=== PATIENT | female | born 1960 | race Caucasian/White ===

== ENCOUNTER 2019-08-04 08:00 | Outpatient (CLI) | payer MEDICAID, SELFPAY | END 2019-08-04 09:00 | disposition home or self-care (01) | LOC: RAD 01-27 13:06 | PROVIDERS: PCP Family Medicine; Visit Provider Internal Medicine Interventional Cardiology | DX: I25.10 Atherosclerotic heart disease of native coronary artery without angina pectoris (principal); R07.9 Chest pain, unspecified; R94.39 Abnormal result of other cardiovascular function study | CPT/HCPCS: 93017; 96374 ==

== ENCOUNTER 2019-08-04 08:00 | Outpatient (CLI) | payer MEDICAID, SELFPAY ==
[2019-08-04 08:08] VITALS: BMI 23.6
--- NOTE | 2019-08-04 08:08 | ECG_ITS ---
NAME OF STUDY: LEXISCAN SESTAMIBI STRESS TEST INDICATION: Chest Pain SEND RESULTS TO [facility] ATTN: China Salcedo MD PROCEDURE: At the baseline, the EKG revealed normal sinus rhythm with a poor R wave progression. Possible old anteroseptal myocardial infarction. Nonspecific T wave changes. The baseline blood pressure was 123/78 mm Hg with a heart rate of71 beats/min. Lexiscan was infused over a period of 20 seconds. A total of 0.4 milligrams of Lexiscan was infused. The stress phase was continued for a total of 5 minutes. Heart rate at the end of the stress phase was 102 with a blood pressure 116/62. The EKG at the peak infusion revealed diffuse nonspecific ST-T changes. Sestamibi was injected 20 seconds after the Lexiscan infusion. Blood pressure at the end of the recovery phase was 122/68 with a heart rate of 66 per minute. CONCLUSION: 1. Nonspecific EKG changes with the LexiScan infusion 2. No LexiScan induced chest pain or cardiac arrhythmia 3. Normal blood pressure and heart rate response 4. Sestamibi/sestamibi perfusion scan pending; see separate report. Electronically Signed On 08-08-2019 10:58:21 [employer] by Cole Penn M.D. [email or web address]
--- NOTE | 2019-08-04 08:09 | NMCV_ITS ---
NM thony perf SPECT r/s* [id number] Yamile Chester Age: 58 Gender: F : 1960 Exam Date: 08/04/2019 08:09 Ordering Phys: China Salcedo MD Technologist: KELY Horton Exam Location: [facility] Indications: ATHEROSCLEROTIC HEART DISEASE OF [place] CORONARY ARTERY STRESS TEST Please see separate stress test report in [facility] for full findings IMAGE PROTOCOL Rest/Stress 1 Lexiscan Day Radiopharmaceutical Dose (mCi) Administration Site Administered by Rest: Tc-99m 10.5 IV KELY Horton Sestamibi Stress:Tc-99m 32.4 IV KELY Mccollum Sestamibi Rest: 04-Aug-2019 60 Discovery 630 Stress: 04-Aug-2019 30 Discovery 630 0.4mg Lexiscan. Supine position only as patient was unable to lay prone. SPECT RESULTS Technical Quality: Excellent Raw Data Analysis: Normal Image Corrections: No attenuation or motion correction applied Summed Stress Score: 1 Summed Rest Score: 2 Summed Difference Score: 0 PERFUSION FINDINGS Small area of persistent decreased tracer uptake noted in distal anterior and apical wall of the left ventricle consistent with more of an artifact in the absence of other parameters. Patient was not able to perform the prone images therefore cannot be adjusted for artifact. FUNCTIONAL RESULTS (calculated via Gated SPECT) Stress Image LV EF (%): 75 Stress EDV (mL):69 TID: 1.11 Stress ESV (mL):17 Rest Image LV EF (%): 75 FUNCTIONAL FINDINGS: There is normal left ventricular systolic function. IMPRESSIONS Myocardial perfusion imaging is normal low probability for obstructive coronary artery disease. TID ratio is elevated which could be secondary left-ventricular hypertrophy/subendocardial ischemia in the absence of other parameters. Fabiano Reyes MD (Electronically Signed) Final Date: 05 August 2019 11:29 S
[2019-08-04] MEDS: regadenoson 0.4 Mg/5 ml Syringe IVP (10:28)
--- NOTE | 2019-08-04 10:29 | SUR.PREOP ---
Patient reports no pain or discomfort prior to the start of the procedure.
[2019-08-04] MEDS: aminophylline 25 mg/mL SDV 10 mL IVP (10:38)
[2019-08-04 10:53] VITALS: BP 122/68; PULSE 66
--- NOTE | 2019-08-04 11:49 | USCV_ITS ---
Nemo Yamile Age: 58 Gender: F : 1960 Exam Date: 08/04/2019 11:49 Ordering Phys: China Salcedo MD Technologist: Laura Vidal [place] [facility] [place]: LEG PAIN Risk Factors: Previous Vascular Surgery: RIGHT LEFT BP: 122.0 / 72.00 BP: 115.0/ 74.00 0 0 Waveform Velocity (cm/s) Velocity (cm/s) Waveform Triphasic 134.7 Iliac Prox 101.9 Triphasic Triphasic 108.6 Iliac Mid 91.2 Triphasic Triphasic Iliac Distal Triphasic 88.7 61.4 Triphasic 55.2 SURGICAL ASSISTANT CERTIFIED 42.6 Triphasic Triphasic 82.4 SFA Prox 71.5 Triphasic Triphasic 80.3 SFA Mid 66.9 Triphasic Triphasic 81.3 SFA Dist 78.8 Biphasic Biphasic 38.4 POP 25.1 Biphasic Biphasic 40.5 ORTHODONTIC BAND MAKER 40.4 Biphasic Biphasic 41.7 DPA 37.1 Biphasic 1.0 KAREN 1.0 FINDINGS RT ORTHODONTIC BAND MAKER = 100 DPA = 120 LT ORTHODONTIC BAND MAKER = 118 DPA = 100 Mild diffuse plaques in the iliac and femoral arteries bilaterally. Normal resting ABIs bilaterally CONCLUSIONS No significant arterial obstruction, based on the above findings Dr Cole Penn MD [facility] (Electronically Signed) Final Date: 05 August 2019 20:05 S
== END 2019-08-04 08:01 | disposition home or self-care (01) ==
PROVIDERS: Family Provider Family Medicine; PCP Family Medicine; Visit Provider Internal Medicine Interventional Cardiology
DX: I25.10 Atherosclerotic heart disease of native coronary artery without angina pectoris (principal); M79.605 Pain in left leg; M79.604 Pain in right leg
CPT/HCPCS: 78452; 93925; 96375; A9500; J0280; J2785

== ENCOUNTER → 2020-02-11 10:24 | Outpatient (BNVA) | payer MEDICAID, SELFPAY | PROVIDERS: Family Provider Family Medicine; PCP Family Medicine; Referring Provider Nurse Practitioner Family; Visit Provider Anesthesiology Pain Medicine | DX: G89.4 Chronic pain syndrome (principal); F17.210 Nicotine dependence, cigarettes, uncomplicated; Z79.891 Long term (current) use of opiate analgesic | CPT/HCPCS: 99202; 99213 ==

== ENCOUNTER → 2020-10-14 09:59 | Outpatient (BNVA) | payer MEDICAID, SELFPAY | PROVIDERS: Family Provider Family Medicine; PCP Family Medicine; Visit Provider Emergency Medicine | DX: R68.89 Other general symptoms and signs (principal); W57.XXXA Bitten or stung by nonvenomous insect and other nonvenomous arthropods, initial encounter | CPT/HCPCS: 86618; 86666; 86757 ==

== ENCOUNTER → 2020-11-18 10:08 | Outpatient (BNVA) | payer MEDICAID, SELFPAY | PROVIDERS: Family Provider Family Medicine; PCP Family Medicine; Visit Provider Emergency Medicine | DX: R31.9 Hematuria, unspecified (principal); R19.8 Other specified symptoms and signs involving the digestive system and abdomen | CPT/HCPCS: 81000 ==

== ENCOUNTER → 2020-11-19 10:34 | Outpatient (BNVA) | payer MEDICAID, SELFPAY | PROVIDERS: Family Provider Family Medicine; PCP Family Medicine; Referring Provider Family Medicine; Visit Provider Emergency Medicine | DX: R19.8 Other specified symptoms and signs involving the digestive system and abdomen (principal) | CPT/HCPCS: 82274; 83630; 87338; 87493; 87506 ==

== ENCOUNTER → 2021-02-06 15:45 | Outpatient (BNVA) | payer MEDICAID, SELFPAY | PROVIDERS: Family Provider Family Medicine; PCP Family Medicine; Visit Provider Emergency Medicine | DX: R53.83 Other fatigue (principal); R21 Rash and other nonspecific skin eruption; W57.XXXA Bitten or stung by nonvenomous insect and other nonvenomous arthropods, initial encounter | CPT/HCPCS: 84443; 86618; 86666; 86757 ==

== ENCOUNTER → 2021-02-15 12:07 | Outpatient (BNVA) | payer MEDICAID, SELFPAY | PROVIDERS: Family Provider Family Medicine; PCP Family Medicine; Visit Provider Family Medicine | DX: R53.83 Other fatigue (principal); N95.1 Menopausal and female climacteric states; R21 Rash and other nonspecific skin eruption; Z13.1 Encounter for screening for diabetes mellitus | CPT/HCPCS: 80053; 82607; 82652; 83001; 83002; 84439; 84443; 84481; 85025; 85651; 86038; 86140 ==

== ENCOUNTER → 2021-05-24 10:30 | Outpatient (BNVA) | payer MEDICAID, SELFPAY | PROVIDERS: Family Provider Family Medicine; PCP Family Medicine; Visit Provider Emergency Medicine | DX: E03.9 Hypothyroidism, unspecified (principal); R53.83 Other fatigue | CPT/HCPCS: 84439; 84443; 84481; 87070 ==

== ENCOUNTER → 2021-08-15 11:18 | Outpatient (BNVA) | payer MEDICAID, SELFPAY | PROVIDERS: Family Provider Family Medicine; PCP Family Medicine; Visit Provider Family Medicine | DX: E34.9 Endocrine disorder, unspecified (principal); E03.9 Hypothyroidism, unspecified; G47.00 Insomnia, unspecified; R53.83 Other fatigue; Z13.1 Encounter for screening for diabetes mellitus; N95.1 Menopausal and female climacteric states; R94.6 Abnormal results of thyroid function studies; H69.82 Other specified disorders of Eustachian tube, left ear; F17.200 Nicotine dependence, unspecified, uncomplicated | CPT/HCPCS: 80053; 84439; 84443; 84481; 85025 ==

== ENCOUNTER → 2021-08-16 08:29 | Outpatient (BNVA) | payer MEDICAID, SELFPAY | PROVIDERS: Family Provider Family Medicine; PCP Family Medicine; Visit Provider Family Medicine | DX: E34.9 Endocrine disorder, unspecified (principal); N95.1 Menopausal and female climacteric states | CPT/HCPCS: 36415; 82533 ==

== ENCOUNTER → 2021-08-22 13:56 | Outpatient (BNVA) | payer MEDICAID, SELFPAY | PROVIDERS: Family Provider Family Medicine; PCP Family Medicine; Referring Provider Family Medicine; Visit Provider Internal Medicine | DX: E03.9 Hypothyroidism, unspecified (principal); H93.12 Tinnitus, left ear; R41.89 Other symptoms and signs involving cognitive functions and awareness; Z87.828 Personal history of other (healed) physical injury and trauma; R63.5 Abnormal weight gain | CPT/HCPCS: 99204 ==

== ENCOUNTER → 2021-08-29 10:21 | Outpatient (BNVA) | payer MEDICAID, SELFPAY | PROVIDERS: Family Provider Family Medicine; PCP Family Medicine; Referring Provider Internal Medicine; Visit Provider Internal Medicine | DX: E03.9 Hypothyroidism, unspecified (principal); H93.12 Tinnitus, left ear; R41.89 Other symptoms and signs involving cognitive functions and awareness; R53.83 Other fatigue | CPT/HCPCS: 83036; 83735; 84305; 86376 ==

== ENCOUNTER → 2021-09-05 16:41 | Outpatient (BNVA) | payer MEDICAID, SELFPAY | PROVIDERS: Family Provider Family Medicine; PCP Family Medicine; Visit Provider Nurse Practitioner Family | DX: Z20.822 Contact with and (suspected) exposure to COVID-19 (principal) | CPT/HCPCS: 87635 ==

== ENCOUNTER → 2022-03-21 13:30 | Outpatient (BNVA) | payer MEDICAID, SELFPAY | PROVIDERS: Family Provider Family Medicine; PCP Family Medicine; Visit Provider Otolaryngology | DX: J32.0 Chronic maxillary sinusitis (principal); J34.2 Deviated nasal septum; H69.82 Other specified disorders of Eustachian tube, left ear; H91.92 Unspecified hearing loss, left ear; H93.12 Tinnitus, left ear; M26.629 Arthralgia of temporomandibular joint, unspecified side; M26.623 Arthralgia of bilateral temporomandibular joint; F17.210 Nicotine dependence, cigarettes, uncomplicated | CPT/HCPCS: 99213 ==

== ENCOUNTER → 2022-04-07 11:24 | Outpatient (BNVA) | payer MEDICAID, SELFPAY | PROVIDERS: Family Provider Family Medicine; PCP Family Medicine; Visit Provider Otolaryngology | DX: J34.2 Deviated nasal septum (principal); J34.89 Other specified disorders of nose and nasal sinuses; M26.629 Arthralgia of temporomandibular joint, unspecified side; H93.12 Tinnitus, left ear; H91.92 Unspecified hearing loss, left ear; F17.210 Nicotine dependence, cigarettes, uncomplicated | CPT/HCPCS: 99214 ==

== ENCOUNTER → 2022-04-18 10:10 | Outpatient (BNVA) | payer MEDICAID, SELFPAY | PROVIDERS: Family Provider Family Medicine; PCP Family Medicine; Visit Provider Emergency Medicine | DX: Z86.19 Personal history of other infectious and parasitic diseases (principal); J30.9 Allergic rhinitis, unspecified | CPT/HCPCS: 86618; 86666; 86757 ==

== ENCOUNTER → 2022-05-16 13:11 | Outpatient (BNVA) | payer MEDICAID, SELFPAY | PROVIDERS: Family Provider Family Medicine; PCP Family Medicine; Visit Provider Otolaryngology | DX: H61.002 Unspecified perichondritis of left external ear (principal); H93.12 Tinnitus, left ear; H91.92 Unspecified hearing loss, left ear; J34.2 Deviated nasal septum; J34.89 Other specified disorders of nose and nasal sinuses; M26.629 Arthralgia of temporomandibular joint, unspecified side; J32.0 Chronic maxillary sinusitis; H69.82 Other specified disorders of Eustachian tube, left ear | CPT/HCPCS: 99214 ==

== ENCOUNTER → 2022-07-19 10:58 | Outpatient (BNVA) | payer MEDICAID, SELFPAY | PROVIDERS: Family Provider Family Medicine; PCP Family Medicine; Visit Provider Internal Medicine | DX: E03.9 Hypothyroidism, unspecified (principal); E04.1 Nontoxic single thyroid nodule; R53.83 Other fatigue; R41.89 Other symptoms and signs involving cognitive functions and awareness; Z87.828 Personal history of other (healed) physical injury and trauma; R63.5 Abnormal weight gain; Z68.1 Body mass index [BMI] 19.9 or less, adult | CPT/HCPCS: 99214 ==

== ENCOUNTER → 2022-07-20 12:21 | Outpatient (BNVA) | payer MEDICAID, SELFPAY | PROVIDERS: Family Provider Family Medicine; PCP Family Medicine; Visit Provider Internal Medicine | DX: E03.9 Hypothyroidism, unspecified (principal) | CPT/HCPCS: 83516; 86376; 86800 ==

== ENCOUNTER → 2022-07-24 10:49 | Outpatient (BNVA) | payer MEDICAID, SELFPAY | PROVIDERS: Family Provider Family Medicine; PCP Family Medicine; Referring Provider Internal Medicine; Visit Provider Internal Medicine | DX: R53.83 Other fatigue (principal); R41.89 Other symptoms and signs involving cognitive functions and awareness; R63.5 Abnormal weight gain | CPT/HCPCS: 82384; 82570 ==

== ENCOUNTER → 2022-08-08 10:23 | Outpatient (BNVA) | payer MEDICAID, SELFPAY | PROVIDERS: Family Provider Family Medicine; PCP Family Medicine; Visit Provider Internal Medicine | DX: R53.83 Other fatigue (principal); E03.9 Hypothyroidism, unspecified | CPT/HCPCS: 82384 ==

== ENCOUNTER → 2022-09-26 10:10 | Outpatient (BNVA) | payer MEDICAID, SELFPAY | PROVIDERS: Family Provider Family Medicine; PCP Family Medicine; Referring Provider Otolaryngology; Visit Provider Nurse Practitioner Family | DX: L57.0 Actinic keratosis (principal); L81.4 Other melanin hyperpigmentation; L72.0 Epidermal cyst; H01.001 Unspecified blepharitis right upper eyelid; D22.5 Melanocytic nevi of trunk; L57.8 Other skin changes due to chronic exposure to nonionizing radiation; L85.3 Xerosis cutis | CPT/HCPCS: 17000; 17003; 99203 ==

== ENCOUNTER → 2022-12-18 13:44 | Outpatient (BNVA) | payer MEDICAID, SELFPAY | PROVIDERS: Family Provider Family Medicine; PCP Family Medicine; Visit Provider Family Medicine | DX: J44.9 Chronic obstructive pulmonary disease, unspecified (principal); I10 Essential (primary) hypertension; E03.9 Hypothyroidism, unspecified; E04.1 Nontoxic single thyroid nodule | CPT/HCPCS: 80053; 80061; 84439; 84443; 84481; 85025 ==

== ENCOUNTER → 2023-02-14 09:56 | Outpatient (BNVA) | payer MEDICAID, SELFPAY | PROVIDERS: Family Provider Family Medicine; PCP Family Medicine; Visit Provider Internal Medicine | DX: R53.83 Other fatigue (principal); R41.89 Other symptoms and signs involving cognitive functions and awareness; Z87.828 Personal history of other (healed) physical injury and trauma; R63.5 Abnormal weight gain; E04.1 Nontoxic single thyroid nodule | CPT/HCPCS: 99213; 99214 ==

== ENCOUNTER → 2023-03-02 10:08 | Outpatient (BNVA) | payer MEDICAID, SELFPAY | PROVIDERS: Family Provider Family Medicine; PCP Family Medicine; Referring Provider Family Medicine; Visit Provider Family Medicine | DX: G89.29 Other chronic pain (principal); M54.2 Cervicalgia | CPT/HCPCS: 72040 ==

== ENCOUNTER → 2023-04-16 11:11 | Outpatient (BNVA) | payer MEDICAID, SELFPAY | PROVIDERS: Family Provider Family Medicine; PCP Family Medicine; Visit Provider Nurse Practitioner Family | DX: L57.0 Actinic keratosis (principal); L81.4 Other melanin hyperpigmentation; L72.0 Epidermal cyst; H01.004 Unspecified blepharitis left upper eyelid; H01.001 Unspecified blepharitis right upper eyelid; L85.3 Xerosis cutis; D22.5 Melanocytic nevi of trunk; L82.1 Other seborrheic keratosis; L30.9 Dermatitis, unspecified | CPT/HCPCS: 69100; 99214 ==

== ENCOUNTER → 2023-07-06 14:38 | Outpatient (BNVA) | payer MEDICAID, SELFPAY | PROVIDERS: Family Provider Family Medicine; PCP Family Medicine; Visit Provider Emergency Medicine | DX: B34.9 Viral infection, unspecified (principal) | CPT/HCPCS: 87400; 87426 ==

== ENCOUNTER → 2023-07-18 10:26 | Outpatient (BNVA) | payer MEDICAID, SELFPAY | PROVIDERS: Family Provider Family Medicine; PCP Family Medicine; Referring Provider Family Medicine; Visit Provider Psychiatry & Neurology Neurology | DX: R20.0 Anesthesia of skin (principal); M54.2 Cervicalgia; R20.9 Unspecified disturbances of skin sensation; R29.90 Unspecified symptoms and signs involving the nervous system | CPT/HCPCS: 36415; 82306; 82607; 82746; 83921; 99203 ==

== ENCOUNTER 2023-08-13 10:46 | Outpatient (CLI) | payer MEDICAID, SELFPAY ==
--- NOTE | 2023-08-13 11:00 | MR_ITS ---
WS: [id number] MRI BRAIN WITHOUT CONTRAST HISTORY: R51.9 - Headache, unspecified COMPARISON: 08/18/2021 TECHNIQUE: Diffusion imaging, multiplanar T1, T2 and FLAIR imaging obtained. No evidence for acute infarct or hemorrhage. [place]-white matter differentiation is normal. Mild small vessel ischemic type changes throughout the white matter. No significant progression. Bila teral ischemic changes also within the brad, RIGHT greater than LEFT with no progression. Mild bilate ral atrophy. No hippocampal atrophy. Ventricles and extra-axial spaces are normal. No inferior displacement of cerebellar tonsils. The sella turcica and pituitary gland are unremarkabl e. Dural venous sinuses and [place] demonstrate no abnormality on this unenhanced studies. Mode rate RIGHT deviation of the nasal septum. Paranasal sinuses: Clear. Mastoid air cells: Normal. Calvarium and scalp: Intact. IMPRESSION: 1. No acute infarct and no hemorrhage. 2. Mild atrophy and small vessel ischemic disease. Very similar to the prior study. 3. Stable prior ischemic disease in the brad. 4. No hippocampal atrophy.
--- NOTE | 2023-08-13 11:45 | MR_ITS ---
WS: [id number] MRI CERVICAL SPINE NONCONTRAST HISTORY: R51.9 - Headache, unspecified COMPARISON: None available. Technique: Multiplanar, multisequence noncontrast imaging of the cervical spine. Slight straightening of the normal cervical lordosis. Less than 2 mm retrolisthesis of C4 and C5. Dis c bases are all mildly narrowed. There is small to moderate reactive marrow edema in C5 and C6. No ac [place] fractures. Signal within the cervical cord is normal. Visualized posterior fossa is unremarkable. Craniocervical junction, C1 and C2 relationship, odontoid process and soft tissues are normal. C2-C3: Normal. C3-C4: Mild osteophytic ridging. No stenosis. C4-C5: Mild osteophytic ridging and mild RIGHT foraminal arthropathy. No stenosis. C5-C6: Moderate osteophytic ridging surrounding the vertebral bodies encroaching upon the ventral the greg sac and the foramina. Moderate central with moderate bilateral foraminal stenosis. Stenosis is pr edominantly due to osteophyte disease. C6-C7: Annular disc bulging with a central disc protrusion and diffuse osteophytosis. Bilateral faith inal disc osteophyte complexes. Mild central with moderate bilateral foraminal stenosis and facet art hritis, greater stenosis on the LEFT and facet arthritis on the LEFT. C7-T1: Normal. Nerve root sleeve diverticulum at T1-2 on the LEFT. IMPRESSION: 1. C5-6: Moderate central and bilateral foraminal stenosis predominantly due to osteophytosis encroa yo upon the ventral thecal sac and the foramina. 2. C6-7: Mild central with moderate bilateral foraminal stenosis and facet arthritis. Slightly great er stenosis and facet arthritis on the LEFT. Stenosis due to disc and osteophyte disease.
== END 2023-08-13 10:47 | disposition home or self-care (01) ==
LOC: RAD 10:46
PROVIDERS: Family Provider Family Medicine; PCP Family Medicine; Visit Provider Psychiatry & Neurology Neurology
DX: I67.82 Cerebral ischemia (principal); G31.9 Degenerative disease of nervous system, unspecified; R51.9 Headache, unspecified; M54.2 Cervicalgia
CPT/HCPCS: 70551; 72141

== ENCOUNTER → 2023-08-24 10:39 | Outpatient (BNVA) | payer MEDICAID, SELFPAY | PROVIDERS: Family Provider Family Medicine; PCP Family Medicine; Visit Provider Nurse Practitioner Family | DX: L57.0 Actinic keratosis (principal); L81.4 Other melanin hyperpigmentation; L85.3 Xerosis cutis; D22.5 Melanocytic nevi of trunk | CPT/HCPCS: 17000; 99213 ==

== ENCOUNTER → 2023-09-06 10:24 | Outpatient (BNVA) | payer MEDICAID, SELFPAY | PROVIDERS: Family Provider Family Medicine; PCP Family Medicine; Visit Provider Orthopaedic Surgery | DX: M47.22 Other spondylosis with radiculopathy, cervical region (principal); M54.2 Cervicalgia | CPT/HCPCS: 72040; 99204 ==

== ENCOUNTER 2024-04-17 11:20 | Outpatient (CLI) | payer MEDICAID, SELFPAY ==
--- NOTE | 2024-04-17 11:20 | MM_ITS ---
WS: [id number] BILATERAL SCREENING DIGITAL TOMOSYNTHESIS MAMMOGRAM WITH CAD HISTORY: Z12.39 - Encounter for other screening for malignant neop... COMPARISON: 03/31/2016, 02/21/2016 Bilateral CC and MLO views with tomosynthesis and synthetic mammography submitted. Computer aided det ection analyzed. Breast composition: There are scattered areas of fibroglandular density. No suspicious masses, microc alcifications or architectural distortion. Benign calcifications. MM/MM scr BI tomosynthesis [id number] IMPRESSION: BI-RADS: 2 - Benign. FOLLOW UP: 1 Year Follow-up
== END 2024-04-17 11:21 | disposition home or self-care (01) ==
LOC: MOBLMAM 11:26
PROVIDERS: Family Provider Family Medicine; PCP Family Medicine; Visit Provider Family Medicine
DX: Z12.31 Encounter for screening mammogram for malignant neoplasm of breast (principal); R92.323 Mammographic fibroglandular density, bilateral breasts
CPT/HCPCS: 77063; 77067

== ENCOUNTER → 2025-02-18 13:51 | Outpatient (BNVA) | payer MEDICAID, SELFPAY | PROVIDERS: PCP Family Medicine; Referring Provider Orthopaedic Surgery; Visit Provider Nurse Practitioner Family | DX: M54.2 Cervicalgia (principal); G89.4 Chronic pain syndrome | CPT/HCPCS: 99214 ==